=== PATIENT | female | born 1955 | race Caucasian/White ===

== ENCOUNTER → 2016-06-16 | Day surgery (SDC) | payer OTHER ==
[~2016-06-16] MED LIST: ACETAMINOPHEN 1000 MG/100 ML VIAL IV ONE; APREPITANT 40 MG CAP ONE; BACL10TA PO; DICL75 PO; LACTATED RINGER'S 1000 ML INJ 1,000 ML ONE; LIDOCAINE 1%/EPINEPHrine 1:100,000 SOLN 20 ML VIAL ONE; ONDANSETRON HCL 4 MG/2 ML VIAL IV PUSH ONE; PROPOFOL 200 MG/20 ML AMP IV ONE; SODIUM CHLOR 0.9% 250 ML BAG IV ONE; VANCOMYCIN HCL 1000 MG VIAL ONE; ceFAZolin INJ 1,000 MG VIAL ONE
--- NOTE | 2016-06-21 13:35 | MP ---
cc: SANDRA AGUIRRE M.D., CYNTHIA KROCHAK,ALEX Hernandez M.D. DATE OF PROCEDURE 06/16/2016 PREOPERATIVE DIAGNOSIS Invasive ductal carcinoma of the right breast. POSTOPERATIVE DIAGNOSIS Invasive ductal carcinoma of the right breast. ANESTHESIA LMA. SURGEON MD Angus MOP MAKER Carla Escobedo, AUTOMOTIVE PARTS MANAGER The AUTOMOTIVE PARTS MANAGER was utilized throughout the entirety of the procedure. It was necessary to have her present for exposure, retraction and assistance with removal of the tissues. She was present throughout the entire procedure. BLOOD LOSS Less than 30 mL. SPECIMEN Right breast needle localized lumpectomy specimen and right axillary sentinel lymph nodes x 2, non-sentinel lymph nodes x 2 to pathology. PROCEDURE IN DETAIL The patient was seen in the Department of Nuclear Medicine where she underwent injection with Technetium-99 sulfur colloid. She was also seen in the Department of Radiology where she underwent needle localization procedure of the right breast. She was imaged 90 minutes later and two lymph nodes were noted in the right axilla and were marked by the radiologist. She was then taken to the operating room and placed on the operating table in the supine position. After an adequate level of laryngeal mask anesthesia was achieved, the right breast and axilla were prepped and draped in the field. Time-out was taken confirming the correct patient, site and procedures to be performed. Both the axilla and the right breast were infiltrated with local anesthetic. An incision was made in the right axilla and dissection carried down utilizing the navigator probe to direct the dissection. Two sentinel nodes were removed as well as two other nodes that were very close to these nodes and after excision these were found to have no activity above background. These were submitted as non-sentinel nodes as well as the two sentinel nodes. The axilla was made hemostatic and closed with interrupted 3-0 Vicryl suture as well as closure of the skin with 5-0 PDS in a running subcuticular fashion. This was toweled off and attention then turned to the breast. An incision was made in the 12 o'clock position of the breast approximately 2 cm from the nipple-areolar complex. Dissection was carried out over toward the needle which was cut at the skin and brought into the wound. A very generous core of tissue was removed all the way down to the muscle. The tissue was completely excised, oriented with silk sutures and sent for specimen radiograph. This confirmed the lesion in question to be present within the specimen. The wound was made hemostatic while awaiting radiologic confirmation. The wound was then closed with interrupted 3-0 Vicryl suture and the skin closed with 5-0 PDS in a running subcuticular fashion. Both wounds were then dressed with Steri-Strips. The patient was extubated and taken back to the recovery room in stable condition. She tolerated the procedure well. MD YONNY Kirkpatrick/IFEANYI /11:53 PM /1:27 PM JOSE
== END | disposition home or self-care (01) ==
LOC: ESDC 08:13
PROVIDERS: ATTEND Surgery Trauma Surgery
DX: C50.911 Malignant neoplasm of unspecified site of right female breast (principal)
CPT/HCPCS: 00400; 01610; 19125; 38525; 88307; J0131; J0690; J2405; J3010; J3370; J7050; J7120; J8501

== ENCOUNTER → 2016-07-02 | Day surgery (SDC) | payer OTHER ==
[~2016-07-02] MED LIST changes: -APREPITANT 40 MG CAP ONE; -PROPOFOL 200 MG/20 ML AMP IV ONE; +PROPOFOL 500 MG/50 ML BTL IV ONE
--- NOTE | 2016-07-05 09:23 | MP ---
cc: SANDRA AGUIRRE M.D., RONALD J. M.D. CHEW, BOON Y. M.D. DATE OF SURGERY 07/02/2016 PROCEDURE 1. Re-excision superficial margin right breast. 2. Aspiration of seroma right axilla. PREOPERATIVE DIAGNOSIS Invasive ductal carcinoma with extensive DCIS component with very close superficial margin. POSTOPERATIVE DIAGNOSIS Invasive ductal carcinoma with extensive DCIS component with very close superficial margin. ANESTHESIA TIVA. SURGEON MD Angus ESTIMATED BLOOD LOSS Less than 30 mL. FLUIDS 1000 joules crystalloid. COMPLICATIONS None. DRAINS None. SPECIMEN New superficial margin to pathology. PROCEDURE IN DETAIL The patient was seen in the holding area and the right breast marked and confirmed by the patient. She was taken to the operating room and placed on the operating table in the supine position. Time-out was taken confirming the correct patient site and procedures to be performed. An 18-gauge needle was used to aspirate the right axilla where the patient had a seroma. 55 mL of fluid was removed and so that all fluid was completely drained. Attention was then turned to the breast where an elliptical incision was made directly over the patient's previous excision. The elliptical incision was slightly superior to the previous incision but the previous incision was included in the additional strips of tissue that were removed. Skin and subcutaneous tissue was removed so that all superficial margin was completely excised. All three strips were marked and oriented for the pathologist. Additional strips were taken so that the incision was included within the specimen. The wound was then made hemostatic and the wound closed with interrupted 2-0 Vicryl suture. The skin was closed with a 5-0 PDS in a running subcuticular fashion. The wound was dressed with Steri-Strips and the patient taken back to the recovery room in stable condition. Sponge, needle and instrument counts were reported be correct. MD YONNY Kirkpatrick/IFEANYI /10:15 AM /9:19 AM
== END | disposition home or self-care (01) ==
LOC: ESDC 06:30
PROVIDERS: ATTEND Surgery Trauma Surgery
DX: D05.11 Intraductal carcinoma in situ of right breast (principal); L76.34 Postprocedural seroma of skin and subcutaneous tissue following other procedure
CPT/HCPCS: 00400; 10140; 19301; 88305; J0131; J0690; J2405; J3010; J3370; J7050; J7120